=== PATIENT | female | born 2000 | race Caucasian/White ===

== ENCOUNTER 2018-05-09 11:17 | Day surgery (SDC) | payer BC ==
[~2018-05-09 11:17] MED LIST: DESFLURANE 15 MIN; LIDOCAINE 2% (SDV) 5 ML INJ
[2018-05-09] MEDS ORDERED: CEFAZOLIN 2 GM/50 ML (PMX) 50 ML IVPB (12:00)
[2018-05-09] MEDS ORDERED: SOD CHLORIDE 0.9% 1,000 ML IV (12:00)
[2018-05-09] MEDS ORDERED: PROPOFOL 20 ML (12:40)
[2018-05-09] MEDS ORDERED: ROCURONIUM 50 MG INJ (12:41)
[2018-05-09] MEDS ORDERED: SUCCINYLCHOLINE CHLORIDE 100 MG/5 ML SYG IV (12:49)
[2018-05-09] MEDS ORDERED: CEFAZOLIN 1 GM INJ (12:50)
[2018-05-09] MEDS ORDERED: ONDANSETRON 4 MG INJ (12:50)
[2018-05-09] MEDS ORDERED: DEXAMETHASONE 4 MG/ML 5 ML INJ (12:50)
[2018-05-09] MEDS: BUPIVACAINE 0.25% (MPF) 30 ML INJ (13:00)
[2018-05-09] MEDS ORDERED: NEOSTIGMINE 10 MG INJ (13:28)
[2018-05-09] MEDS ORDERED: GLYCOPYRROLATE 0.4 MG INJ (13:29)
[2018-05-09] MEDS ORDERED: HYDROCODONE/APAP (5/325) TAB PO (13:30)
[2018-05-09] MEDS: HYDROmorphONE 1 MG/5 ML IV SYRINGE IV ×2 (13:51→13:59)
[2018-05-09] MEDS: ONDANSETRON 4 MG INJ IV (13:52)
[2018-05-09] MEDS ORDERED: DIPHENHYDRAMINE 50 MG INJ IV (14:00)
[2018-05-09] MEDS ORDERED: EPHEDrine SULFATE 50 MG/5 ML SYG IV (14:00)
[2018-05-09] MEDS ORDERED: FENTAnyl 50 MCG/ML VIAL IV ×3 (14:00)
[2018-05-09] MEDS ORDERED: HYDROmorphONE 1 MG/5 ML IV SYRINGE IV (14:00)
[2018-05-09] MEDS ORDERED: MEPERIDINE 25 MG INJ IV (14:00)
[2018-05-09] MEDS ORDERED: MIDAZOLAM 1 MG/ML 2 ML INJ IV (14:00)
[2018-05-09] MEDS ORDERED: OXYCODONE/ACETAMINOPHEN (5/325) TAB PO (14:00)
[2018-05-09] MEDS ORDERED: ALBUTEROL 0.083% (NEB) 2.5 MG/3 ML AMP HHN (14:00)
[2018-05-09] MEDS ORDERED: hydrALAzine 20 MG INJ IV (14:00)
[2018-05-09] MEDS ORDERED: METOCLOPRAMIDE 10 MG INJ IV (14:00)
[2018-05-09] MEDS ORDERED: LABETALOL HCL 20MG INJ IV (14:00)
[2018-05-09] MEDS: OXYCODONE/ACETAMINOPHEN (5/325) TAB PO (14:05)
== END 2018-05-09 15:35 | disposition home or self-care (01) ==
LOC: SDS 11:17
DX: K80.10 Calculus of gallbladder with chronic cholecystitis without obstruction (principal)
CPT/HCPCS: 47562; 88304

== ENCOUNTER 2018-05-18 23:36 | Emergency (ER) | payer BC | END 2018-05-19 05:55 | disposition home or self-care (01) | LOC: FTE 23:36 | DX: Z48.01 Encounter for change or removal of surgical wound dressing (principal) | CPT/HCPCS: 99282 ==